=== PATIENT | male | born 1960 | race Caucasian/White ===

== ENCOUNTER 2020-09-25 12:24 | Outpatient (CLI) | payer BC, SELFPAY ==
[2020-09-27 06:44] LABS: SARS-CoV-2 RNA PCR Negative
== END 2020-09-25 12:25 | disposition home or self-care (01) ==
PROVIDERS: PCP Family Medicine; Visit Provider Family Medicine
DX: Z20.828 Contact with and (suspected) exposure to other viral communicable diseases (principal)
CPT/HCPCS: 87635; C9803; U0003

== ENCOUNTER 2020-10-23 11:58 | Outpatient (CLI) | payer BC, SELFPAY ==
[2020-10-24 17:18] LABS: SARS-CoV-2 RNA PCR Negative
== END 2020-10-23 11:59 | disposition home or self-care (01) ==
PROVIDERS: PCP Family Medicine; Visit Provider Family Medicine
DX: Z20.828 Contact with and (suspected) exposure to other viral communicable diseases (principal)
CPT/HCPCS: 87635; C9803; U0003